=== PATIENT | female | born 1960 | race Asian ===

== ENCOUNTER 2018-10-13 09:50 | Day surgery (SDC) | payer OTHER ==
[~2018-10-13] VITALS: Ht 162.6 cm; Wt 61.2 kg
[2018-10-13 10:36] VITALS: Ht 162.6 cm; Wt 61.2 kg
[2018-10-13] MEDS ORDERED: NO ACTIVE MEDS (10:40)
[2018-10-13 11:06] VITALS: BP 111/64; PULSE 64; RESP 18
[2018-10-13] MEDS ORDERED: FENTAnyl 50 MCG/ML VIAL ONE (11:41)
[2018-10-13] MEDS ORDERED: MIDAZOLAM 1 MG/ML 2 ML INJ ONE (11:41)
[2018-10-13 11:56] VITALS: BP 103/64; PULSE 54; RESP 14
== END 2018-10-13 13:23 | disposition home or self-care (01) ==
LOC: GIL 09:50
PROVIDERS: ATTEND Internal Medicine Gastroenterology
DX: Z12.11 Encounter for screening for malignant neoplasm of colon (principal); K64.8 Other hemorrhoids; D12.5 Benign neoplasm of sigmoid colon; K57.30 Diverticulosis of large intestine without perforation or abscess without bleeding
CPT/HCPCS: 45380; 88305; J2250; J3010